=== PATIENT | female | born 1995 | race Caucasian/White ===

== ENCOUNTER 2016-08-29 11:57 | Emergency (ER) | payer OTHER ==
[~2016-08-29] VITALS: Ht 170.2 cm; Wt 72.2 kg
[2016-08-29 12:03] VITALS: BP 123/76; PULSE 82; RESP 18; TEMP 98.3; O2SAT 100
--- NOTE | 2016-08-29 14:00 | PD ---
HPI Chief Complaint: Respiratory Symptoms Time Seen by Provider: 13:29 Travel History International Travel<30 days: No Contact w/Intl Traveler<30days: No Traveled to known affect area: No History of Present Illness HPI 21-year-old female complains of shortness of breath and chest pain. Patient states that she started having ear pain nasal congestion with chest pain about 5 days ago. Patient states that the chest pain is sharp stabbing pain started substernally with radiation to the back. Patient states the pain is worse with breathing. Patient states that the pain is worse with swallowing also. Patient denies any coughing. Patient denies any abdominal pain. Patient denies any nausea vomiting diarrhea. On a scale of 1-10 the pain is an 8. Patient denies any history of cardiac or pulmonary disease. Patient denies any chance of being . Patient is a nonsmoker. Patient was seen at local urgent care center 3 days ago and given prescription for amoxicillin, steroid- dependent and Prilosec. Patient states that the infection and sinus infection got better however she had persistent chest pain. PFSH Past Medical History Diminished Hearing: No Tetanus Vaccination: Unknown Influenza Vaccination: No ?: Not LMP: 08/02/16 Social History Alcohol Use: Yes (2 glasses of wine/week) Tobacco Use: No Substance Use: No Allergies-Medications (Allergen,Severity, Reaction): Coded Allergies: No Known Allergies (Unverified , 08/29/16) Review of Systems General / Constitutional: No: Fever Eyes: No: Visual changes HENT: No: Headaches Cardiovascular: Positive: Chest Pain or Discomfort Respiratory: No: Shortness of Breath Gastrointestinal: No: Abdominal Pain Genitourinary: No: Dysuria Musculoskeletal: No: Pain Skin: No Rash Neurologic: No: Weakness Psychiatric: No: Depression Endocrine: No: Polydipsia Hematologic/Lymphatic: No: Easy Bruising Physical Exam Narrative GENERAL: Well-nourished, well-developed patient. SKIN: Warm and dry. HEAD: Normocephalic. EYES: No scleral icterus. No injection or drainage. NECK: Supple, trachea midline. No JVD or lymphadenopathy. CARDIOVASCULAR: Regular rate and rhythm without murmurs, gallops, or rubs. RESPIRATORY: Breath sounds equal bilaterally. No accessory muscle use. GASTROINTESTINAL: Abdomen soft, non-tender, nondistended. MUSCULOSKELETAL: No cyanosis, or edema. BACK: Nontender without obvious deformity. No CVA tenderness. Neurologic exam normal. Data Data Last Documented VS Vital Signs Date Time Temp Pulse Resp B/P Pulse Ox O2 Delivery O2 Flow Rate FiO2 08/29/16 12:03 98.3 82 18 123/76 100 Orders Electrocardiogram (08/29/16 13:53) Chest, Pa & Lat (08/29/16 13:53) Lidocaine 2% Viscous (Xylocaine 2% Visco (08/29/16 15:00) Rqcep-Hsrysx-Wbwjdl-Pb Liq ( Liq (08/29/16 15:00) Al-Mag Hy-Si 40-40-4 Mg/Ml Liq (Mag-Al P (08/29/16 15:00) MDM Medical Decision Making Medical Screen Exam Complete: Yes Emergency Medical Condition: Yes Interpretation(s) Last Impressions Chest X-Ray 08/29/16 1353 Signed Impressions: Service Date/Time: Monday, August 29, 2016 13:55 - CONCLUSION: No acute disease. Tavo Yeung MD Differential Diagnosis Differential diagnosis including pleurisy, pericarditis, esophagitis, bronchitis , pneumonia. Narrative Course 21-year-old female with persistent chest pain. Recently patient was treated for ear infection and sinus infection. GI cocktail solution given. Diagnosis Primary Impression: Atypical chest pain Additional Impression: Dysphagia Qualified Code: R13.14 - Esophageal dysphagia Patient Instructions: General Instructions Additional Instructions: GI cocktail solution as directed. Follow-up with personal physician and GI specialist. Return if persistent problem or worse. Med/Other Pt SpecificInfo: Prescription(s) given Scripts Pantoprazole (Protonix)20 Mg Tab20 Mg PO DAILY #30 TAB Ref 0 Prov:Aamir Chand MD 08/29/16 Aqhmtznvi-Ttsulumczjx-Enkhamzj Liq ( Liq)16.2 mg/5 ml Elix10 Ml PO TID #90 ML Ref 0 Prov:Aamir Chand MD 08/29/16 Lidocaine Viscous Liq 2 % Liqd10 Ml PO TID PRN (PAIN) #60 BOTTLE Ref 0 Prov:Aamir Chand MD 08/29/16 Disposition: 01 DISCHARGE HOME Condition: Stable Aamir Chand MD Aug 29, 2016 14:00
--- NOTE | 2016-08-29 14:27 | RADHPO ---
EXAM DATE/TIME: 08/29/2016 13:55 [facility] COMPARISON: No previous studies available for comparison. INDICATIONS : Short of breath, complains of chest pain and back pain. MEDICAL HISTORY : None. SURGICAL HISTORY : None. ENCOUNTER: Initial ACUITY: 1 day PAIN SCORE: 8/10 LOCATION: Bilateral chest FINDINGS: PA and lateral views of the chest demonstrate the lungs to be symmetrically aerated without evidence of mass, infiltrate or effusion. The cardiomediastinal contours are unremarkable. Osseous structure s are intact. CONCLUSION: No acute disease. Tavo Yeung MD on August 29, 2016 at 14:24 Board Certified Radiologist. This report was verified electronically.
[2016-08-29] MEDS ORDERED: ALUMINUM/MAGNESIUM/SIMETH 30 ML CUP PO ONE (15:00)
[2016-08-29] MEDS ORDERED: ATROPINE/SCOPOLAM/HYOSCYAM/PB ELIXIR 10 ML CUP PO ONE (15:00)
[2016-08-29] MEDS ORDERED: LIDOCAINE VISCOUS 2% SOLN 15 ML UDC PO ONE (15:00)
[2016-08-29] MEDS ORDERED: PANT20 PO (15:32)
[2016-08-29] MEDS ORDERED: LIDO1SOL8 PO (15:32)
[2016-08-29] MEDS ORDERED: PHEN1ELX5 PO (15:32)
--- NOTE | 2016-08-29 21:14 | EKG ---
Date Performed: 08/29/2016 Time Performed: 13:55:52 PTAGE: 21 years EKG: Sinus bradycardia with sinus arrhythmia Normal ECG except for rate NO PREVIOUS TRACING DOCTOR: Rosas Godwin Interpretating Date/Time 08/29/2016 21:13:27
== END 2016-08-29 15:44 | disposition home or self-care (01) ==
LOC: PHED 11:57
DX: R07.89 Other chest pain (principal); R13.10 Dysphagia, unspecified
CPT/HCPCS: 71020; 93005